=== PATIENT | male | born 1975 | race African-American/Black ===

== ENCOUNTER 2018-12-11 11:48 | Emergency (ER) | payer MEDICAID, MEDICARE ==
[~2018-12-11] VITALS: Ht 177.8 cm; Wt 90.7 kg
[2018-12-11] MEDS ORDERED: cloNIDine HCL 0.1 MG TAB PO ONE (12:00)
[2018-12-11 13:06] VITALS: BP 138/97
[2018-12-11] MEDS ORDERED: ACETAMINOPHEN 500 MG TAB PO ONE (13:15)
== END 2018-12-11 13:53 | disposition home or self-care (01) ==
LOC: ER 11:48
DX: L03.011 Cellulitis of right finger (principal); I10 Essential (primary) hypertension
CPT/HCPCS: 73140